=== PATIENT | female | born 1990 | race Caucasian/White ===

== ENCOUNTER 2020-07-06 15:58 | Emergency (ER) | payer SELFPAY ==
[~2020-07-06] VITALS: Ht 165.1 cm; Wt 50.0 kg
[2020-07-06 16:09] VITALS: Ht 165.1 cm; Wt 50.0 kg
[2020-07-06 16:51] LABS: BASOPHILS 0.4 % (0-2); EOSINOPHILS 1.1 % (0-7); HEMATOCRIT 45.4 % (36.0-48.0); HEMOGLOBIN 15.7 g/dL (12-16); IMMATURE GRANULOCYTES 0.9 % (0-5); LYMPHOCYTES 28.1 % (15-50); MCHC 34.6 g/dL (31.0-37.0); MCV 92.5 fL (80.0-100.0); MEAN PLATELET VOLUME 11.7 fL (7.4-10.4); MONOCYTES 6.3 % (2-11); NEUTROPHILS 63.2 % (40-80); PLATELET COUNT 308 10x3/uL (130-400); RBC 4.91 10x6/uL (4.00-5.40); RDW 13.2 % (11.5-14.5); WBC 14.4 10x3/uL (4.8-10.8)
[2020-07-06 17:35] LABS: BILIRUBIN NEGATIVE (NEGATIVE); KETONE NEGATIVE (NEGATIVE); NITRITE NEGATIVE (NEGATIVE); UROBILINOGEN NORMAL mg/dL (< 2)
[2020-07-06 17:40] LABS: WHITE CELLS - URINE 0-5 HPF (0-4)
[2020-07-06 17:40] LABS: CALC OSMOLALITY 272 mosm/kg (275-300); CALCIUM 9.4 mg/dL (8.5-10.1); CARBON DIOXIDE 26.8 mmol/L (21.0-32.0); CHLORIDE - SERUM 102 mmol/L (98-107); CREATININE - SERUM 0.7 mg/dL (0.6-1.3); GLUCOSE 87 mg/dL (74-106); SODIUM 136 mmol/L (136-145); UREA NITROGEN 19 mg/dL (7-18); eGFR NON AFRICAN AMERICAN > 90 mL/min (90-120)
[2020-07-06 17:41] LABS: BACTERIA FEW HPF (NONE SEEN); HCG URINE NEGATIVE (NEGATIVE)
[2020-07-06 17:45] LABS: ALBUMIN 3.9 g/dL (3.4-5.0); ALKALINE PHOSPHATASE 89 U/L (30-120); ALT (SGPT) 31 U/L (10-68); BILIRUBIN - TOTAL 0.73 mg/dL (0.2-1.3); MAGNESIUM - SERUM 2.1 mg/dL (1.8-2.4)
[2020-07-06 17:46] LABS: UDS - AMPHET POSITIVE QUAL (NEGATIVE); UDS - BARB NEGATIVE QUAL (NEGATIVE); UDS - BENZO NEGATIVE QUAL (NEGATIVE); UDS - COCAINE NEGATIVE QUAL (NEGATIVE); UDS - OPIATE NEGATIVE QUAL (NEGATIVE); UDS - PCP NEGATIVE QUAL (NEGATIVE); UDS - THC POSITIVE QUAL (NEGATIVE)
[2020-07-06 20:24] VITALS: BP 109/80
== END 2020-07-06 20:24 | disposition home or self-care (01) ==
LOC: D.ER 15:58
PROVIDERS: Family Medicine
DX: F15.10 Other stimulant abuse, uncomplicated (principal); M25.531 Pain in right wrist